=== PATIENT | male | born 1940 | race African-American/Black ===

== ENCOUNTER 2020-07-18 13:58 | Inpatient (IN) | payer OTHER ==
[~2020-07-18] VITALS: Ht 185.4 cm; Wt 89.9 kg
[2020-07-18] MEDS ORDERED: AZITHROMYCIN 500 MG TABLET PO STA (15:11)
[2020-07-18] MEDS ORDERED: IPRATROPIUM BROMIDE (0.02%) 0.5MG/2.5ML NEB HHN STA (15:11)
[2020-07-18] MEDS ORDERED: ALBUTEROL (0.083%) 2.5MG/3ML NEB HHN STA (15:11)
[2020-07-18] MEDS ORDERED: PREDNISONE 20MG TABLET PO STA (15:11)
[2020-07-18] MEDS ORDERED: SODIUM CHLORIDE 0.9% 500 ML IV ONE ×2 (15:15→18:00)
[2020-07-18] MEDS ORDERED: ALBUTEROL (0.083%) 2.5MG/3ML NEB ONE (15:19)
[2020-07-18] MEDS ORDERED: IPRATROPIUM BROMIDE (0.02%) 0.5MG/2.5ML NEB ONE (15:20)
[2020-07-18 16:15] LABS: BASOPHILS % 0.1 % (0.0-2.0); HEMOGLOBIN. 9.5 g/dL (14.0-18.0); LYMPHOCYTES % 8.4 % (20.0-50.0); MEAN CORPUSCULAR HEMOGLOBIN 30.4 pg (28.0-32.0); MEAN CORPUSCULAR VOLUME 92.8 fL (80.0-94.0); MEAN PLATELET VOLUME 9.2 fl (7.4-10.4); MONOCYTES % 6.5 % (2.0-8.0); PLATELET 218 x1000/uL (130-400); RED BLOOD CELL COUNT 3.13 mill/uL (4.7-6.1); RED CELL DISTRIBUTION WIDTH 18.7 % (11.6-14.6)
[2020-07-18 16:17] LABS: CHLORIDE 88 mEq/L (98-107)
[2020-07-18] MEDS ORDERED: ACETAMINOPHEN 325MG TABLET PO PRN ×2 (19:15)
[2020-07-18] MEDS ORDERED: MAGNESIUM/ALUMINUM HYDROXIDE/SIMETHICONE 30ML UDC PO PRN (19:15)
[2020-07-18] MEDS ORDERED: LORAZEPAM 0.5MG TABLET PO PRN (19:15)
[2020-07-18] MEDS ORDERED: IPRATROPIUM/ALBUTEROL 0.5-3(2.5)MG/3ML NEB NEB PRN (19:15)
[2020-07-18] MEDS ORDERED: CLONIDINE 0.1MG TABLET PO PRN (19:15)
[2020-07-18] MEDS ORDERED: NITROGLYCERIN 0.4MG TABLET SL SL PRN (19:15)
[2020-07-18] MEDS ORDERED: GUAIFENESIN 200MG/10ML SUGAR FREE UDC PO PRN (19:15)
[2020-07-18] MEDS ORDERED: DOCUSATE SODIUM 100MG CAPSULE PO PRN (19:15)
[2020-07-18] MEDS ORDERED: LEVOFLOXACIN 500MG PREMIX 100 ML IV SCH ×2 (19:15→21:00)
[2020-07-18] MEDS ORDERED: ONDANSETRON HCL 4MG/2ML INJ IV PRN (19:15)
[2020-07-18] MEDS ORDERED: TRAMADOL 50MG TABLET PO PRN (19:15)
[2020-07-18] MEDS ORDERED: ZOLPIDEM TARTRATE 5MG TABLET PO PRN (20:00)
[2020-07-18 20:07] LABS: FOLIC ACID (FOLATE) SERUM 4.9 ng/mL (>5.38)
[2020-07-18] MEDS: GUAIFENESIN/DM 600MG/30MG ER TAB 12HR PO SCH (21:00)
[2020-07-18] MEDS ORDERED: FAMOTIDINE 20MG TABLET PO SCH (21:00)
[2020-07-18] MEDS ORDERED: ENOXAPARIN 40MG/0.4ML SYR SUBCUT SCH (21:00)
[2020-07-18] MEDS: FAMOTIDINE 20MG TABLET PO SCH (21:22)
[2020-07-18] MEDS: LISINOPRIL 20MG TABLET PO SCH (21:22)
[2020-07-18] MEDS: ASCORBIC ACID 500 MG TABLET PO SCH (21:22)
[2020-07-18] MEDS: METHYLPREDNISOLONE SOD SUCC 125 MG/2 ML VIAL IV SCH (22:09)
[2020-07-18] MEDS: IPRATROPIUM/ALBUTEROL 0.5-3(2.5)MG/3ML NEB HHN SCH (23:30)
[2020-07-18 23:33] LABS: CREATINE KINASE MB FRACTION 3.1 ng/mL (0.5-3.6)
[2020-07-19] MEDS: DILTIAZEM HCL 60MG TABLET PO SCH ×4 (00:33→18:40)
[2020-07-19] MEDS: CYANOCOBALAMIN 1000MCG/ML VIAL IM SCH ×2 (00:33→09:04)
[2020-07-19 04:00] VITALS: BP 159/90
[2020-07-19 04:49] VITALS: BP 159/90
[2020-07-19] MEDS: IPRATROPIUM/ALBUTEROL 0.5-3(2.5)MG/3ML NEB HHN SCH ×5 (05:04→20:33)
[2020-07-19] MEDS: METHYLPREDNISOLONE SOD SUCC 125 MG/2 ML VIAL IV SCH ×2 (06:03→14:31)
[2020-07-19] MEDS: FAMOTIDINE 20MG TABLET PO SCH (08:53)
[2020-07-19] MEDS: ASCORBIC ACID 500 MG TABLET PO SCH (08:53)
[2020-07-19] MEDS: GUAIFENESIN/DM 600MG/30MG ER TAB 12HR PO SCH (08:54)
[2020-07-19] MEDS ORDERED: FOLIC ACID 1 MG in SODIUM CHLORIDE 0.9% 500 ML IV SCH (09:00)
[2020-07-19] MEDS: LISINOPRIL 20MG TABLET PO SCH (09:00)
[2020-07-19] MEDS ORDERED: ASPIRIN 325MG EC TABLET PO SCH (09:00)
[2020-07-19] MEDS ORDERED: ZINC SULFATE 220 MG ( 50 ) CAPSULE PO SCH (09:00)
[2020-07-19 09:42] LABS: HEMATOCRIT. 26.1 % (42.0-52.0); HEMOGLOBIN. 8.8 g/dL (14.0-18.0); MEAN CORPUSCULAR HEMOGLOBIN 31.8 pg (28.0-32.0); MEAN CORPUSCULAR VOLUME 94.1 fL (80.0-94.0); MEAN PLATELET VOLUME 9.9 fl (7.4-10.4); PLATELET 158 x1000/uL (130-400); RED BLOOD CELL COUNT 2.77 mill/uL (4.7-6.1); RED CELL DISTRIBUTION WIDTH 19.2 % (11.6-14.6)
[2020-07-19 09:48] LABS: CHLORIDE 93 mEq/L (98-107)
[2020-07-19 09:55] LABS: PHOSPHORUS 2.8 mg/dL (2.5-4.9)
[2020-07-19 09:57] LABS: CREATINE KINASE 178 IU/L (39-308)
[2020-07-19 10:00] LABS: CREATINE KINASE MB FRACTION 3.6 ng/mL (0.5-3.6)
[2020-07-19 16:00] VITALS: BP 139/73
[2020-07-19 20:41] VITALS: BP 152/67
[2020-07-19] MEDS ORDERED: LEVOFLOXACIN 250MG PREMIX 50 ML IV SCH (21:00)
[2020-07-19 22:48] LABS: PLATELET ESTIMATE NORMAL
[2020-07-20] MEDS ORDERED: FOLIC ACID 1MG TABLET PO SCH (09:00)
== END 2020-07-19 21:41 | disposition short-term general hospital (02) | DRG 189 ==
LOC: ER 14:38 → UNDOADMIN 19:44 → 5WST 19:44 → MICUSO 19:44
PROVIDERS: ADMIT Internal Medicine; ATTEND Internal Medicine
DX: J96.00 Acute respiratory failure, unspecified whether with hypoxia or hypercapnia (principal); N17.0 Acute kidney failure with tubular necrosis; J44.1 Chronic obstructive pulmonary disease with (acute) exacerbation; E87.1 Hypo-osmolality and hyponatremia; I16.1 Hypertensive emergency; D51.9 Vitamin B12 deficiency anemia, unspecified; E78.00 Pure hypercholesterolemia, unspecified; F12.10 Cannabis abuse, uncomplicated; I10 Essential (primary) hypertension; I48.0 Paroxysmal atrial fibrillation; R74.0 Nonspecific elevation of levels of transaminase and lactic acid dehydrogenase [LDH]; Z79.899 Other long term (current) drug therapy; Z87.891 Personal history of nicotine dependence
CPT/HCPCS: 36415; 71045; 80053; 80061; 80320; 82550; 82553; 82607; 82728; 82746; 83036; 83540; 83550; 83735; 83880; 84100; 84145; 84484; 85025; 85379; 93005; 93306; 93970; 94640; 94644; 96374; 99285; J1650; J1956; J2930; J3420; J3490; J7040; J7512; G0480

== ENCOUNTER 2020-07-31 18:30 | Emergency (ER) | payer OTHER ==
[~2020-07-31] VITALS: Ht 180.3 cm; Wt 82.0 kg
[2020-07-31 19:59] LABS: HEMATOCRIT. 24.7 % (42.0-52.0); HEMOGLOBIN. 7.6 g/dL (14.0-18.0); MEAN CORPUSCULAR VOLUME 97.2 fL (80.0-94.0); MEAN PLATELET VOLUME 9.6 fl (7.4-10.4); PLATELET 238 x1000/uL (130-400); RED BLOOD CELL COUNT 2.54 mill/uL (4.7-6.1); RED CELL DISTRIBUTION WIDTH 18.3 % (11.6-14.6)
[2020-07-31 20:05] LABS: CHLORIDE 111 mEq/L (98-107)
[2020-07-31 20:42] LABS: CLARITY URINE CLEAR (CLEAR); COLOR URINE YELLOW (YELLOW); KETONES URINE NEGATIVE (NEGATIVE); LEUKOCYTE ESTERASE URINE NEGATIVE (NEGATIVE); NITRITE URINE NEGATIVE (NEGATIVE); OCCULT BLOOD URINE 2+ (NEGATIVE); PROTEIN URINE TRACE (NEGATIVE); SPECIFIC GRAVITY URINE 1.018 (1.005-1.030)
[2020-07-31] MEDS ORDERED: FAMOTIDINE 20MG TABLET PO NR (20:45)
[2020-07-31] MEDS ORDERED: SODIUM CHLORIDE 0.9% 1,000 ML IV ONE (20:45)
[2020-07-31] MEDS ORDERED: OCTREOTIDE 1,000 MCG in SODIUM CHLORIDE 0.9% 98 ML IV ONE ×5 (21:00→21:15)
[2020-07-31] MEDS ORDERED: PANTOPRAZOLE SODIUM 40 MG/VIAL IV NR (21:00)
[2020-07-31] MEDS ORDERED: OCTREOTIDE 1,000 MCG in SODIUM CHLORIDE 0.9% 90 ML IV ONE (21:15)
[2020-07-31 22:23] LABS: PLATELET ESTIMATE NORMAL
[2020-07-31 23:36] VITALS: BP 123/42
== END 2020-08-01 00:43 | disposition short-term general hospital (02) ==
LOC: ER 18:30
DX: K92.2 Gastrointestinal hemorrhage, unspecified (principal); N28.9 Disorder of kidney and ureter, unspecified; I10 Essential (primary) hypertension; I48.91 Unspecified atrial fibrillation; J44.9 Chronic obstructive pulmonary disease, unspecified; E78.00 Pure hypercholesterolemia, unspecified; Z79.01 Long term (current) use of anticoagulants; Z79.899 Other long term (current) drug therapy
CPT/HCPCS: 36415; 51702; 80053; 81003; 83880; 84484; 85025; 93005; 96365; 96375; 99285; C9113; J2354; J7050

== ENCOUNTER 2021-07-18 06:17 | Inpatient (IN) | payer OTHER ==
[~2021-07-18] VITALS: Ht 198.1 cm; Wt 83.5 kg
[2021-07-18 08:15] LABS: HEMATOCRIT. 42.6 % (42.0-52.0); HEMOGLOBIN. 13.9 g/dL (14.0-18.0); MEAN CORPUSCULAR HEMOGLOBIN 28.8 pg (28.0-32.0); MEAN CORPUSCULAR VOLUME 88.1 fL (80.0-94.0); MEAN PLATELET VOLUME 9.1 fl (7.4-10.4); PLATELET 236 x1000/uL (130-400); RED BLOOD CELL COUNT 4.83 mill/uL (4.7-6.1); RED CELL DISTRIBUTION WIDTH 17.6 % (11.6-14.6)
[2021-07-18 09:01] LABS: CHLORIDE 98 mEq/L (98-107); INR 1.1; PROTHROMBIN TIME 11.8 sec (9.6-11.0)
[2021-07-18 09:14] LABS: CLARITY URINE CLEAR (CLEAR); COLOR URINE YELLOW (YELLOW); KETONES URINE TRACE (NEGATIVE); LEUKOCYTE ESTERASE URINE 1+ (NEGATIVE); NITRITE URINE NEGATIVE (NEGATIVE); OCCULT BLOOD URINE 2+ (NEGATIVE); PH URINE 5.5 (4.5-8.0); PROTEIN URINE 3+ (NEGATIVE); SPECIFIC GRAVITY URINE 1.014 (1.005-1.030)
[2021-07-18] MEDS ORDERED: SODIUM CHLORIDE 0.9% 1000ML BAG (SEPSIS BOLUS) IV ONE (10:00)
[2021-07-18] MEDS ORDERED: PIPERACILLIN/TAZ 3.375G PREMIX 50 ML IV ONE (10:00)
[2021-07-18] MEDS ORDERED: VANCOMYCIN 1 G PREMIX 200 ML IV ONE (10:00)
[2021-07-18] MEDS ORDERED: SODIUM CHLORIDE 0.45% 1,000 ML IV ONE (13:00)
[2021-07-18] MEDS ORDERED: CLONIDINE 0.1MG TABLET PO PRN (13:00)
[2021-07-18] MEDS ORDERED: IPRATROPIUM/ALBUTEROL 0.5-3(2.5)MG/3ML NEB HHN PRN (13:00)
[2021-07-18] MEDS ORDERED: LORAZEPAM 2MG/ML CPJ IV PRN (13:00)
[2021-07-18] MEDS ORDERED: MAGNESIUM/ALUMINUM HYDROXIDE/SIMETHICONE 30ML UDC PO PRN (13:00)
[2021-07-18] MEDS ORDERED: HYDROCODONE/ACETAMINOPHEN 5/325MG TABLET PO PRN (13:00)
[2021-07-18] MEDS ORDERED: ACETAMINOPHEN 325MG TABLET PO PRN (13:00)
[2021-07-18] MEDS ORDERED: ONDANSETRON HCL 4MG/2ML INJ IV PRN (13:00)
[2021-07-18] MEDS ORDERED: LEVOFLOXACIN 500MG PREMIX 100 ML IV SCH (13:00)
[2021-07-18] MEDS ORDERED: THROAT LOZENGES-BENZOCAINE/MENTH/CETYLPYRD CL LOZENGES MM PRN (13:15)
[2021-07-18 14:00] LABS: PLATELET ESTIMATE NORMAL
[2021-07-18] MEDS: METOPROLOL TARTRATE 25MG TABLET PO SCH (14:42)
[2021-07-18] MEDS: POTASSIUM CHLORIDE 20MEQ TABLET SR PO SCH (14:43)
[2021-07-18] MEDS: ENOXAPARIN 40MG/0.4ML SYR SUBCUT SCH (14:43)
[2021-07-18] MEDS: AMLODIPINE 10MG TABLET PO SCH (14:43)
[2021-07-18 22:20] VITALS: BP 165/90
[2021-07-18 22:30] VITALS: BP 165/90
[2021-07-19] MEDS: METOPROLOL TARTRATE 25MG TABLET PO SCH ×2 (00:22→09:15)
[2021-07-19 04:00] VITALS: BP 157/83
[2021-07-19 06:15] LABS: CHLORIDE 104 mEq/L (98-107)
[2021-07-19 06:25] LABS: LDL CHOLESTEROL 51 mg/dL (5-100)
[2021-07-19 06:26] LABS: HDL CHOLESTEROL 110 mg/dL (40-59); T4 FREE 1.16 ng/dL (0.76-1.46)
[2021-07-19 08:00] VITALS: BP 150/78
[2021-07-19] MEDS: ASPIRIN 81MG EC TABLET PO SCH (09:15)
[2021-07-19] MEDS: POTASSIUM CHLORIDE 20MEQ TABLET SR PO SCH (09:15)
[2021-07-19] MEDS: AMLODIPINE 10MG TABLET PO SCH (09:15)
[2021-07-19] MEDS ORDERED: BENZONATATE 100MG CAPSULE PO PRN (11:15)
[2021-07-19] MEDS ORDERED: NALOXONE HCL 0.4MG/ML VIAL IV PRN (11:30)
[2021-07-19] MEDS ORDERED: LEVOFLOXACIN 500MG PREMIX 100 ML IV SCH (13:00)
[2021-07-19] MEDS: ENOXAPARIN 40MG/0.4ML SYR SUBCUT SCH (13:02)
[2021-07-19] MEDS: METHYLPREDNISOLONE SOD SUCC 40 MG/ML VIAL IV SCH (13:02)
[2021-07-19 16:00] VITALS: BP 146/82
[2021-07-19] MEDS: ZINC OXIDE 20% OINT 30GM TOP SCH (18:49)
[2021-07-19 20:00] VITALS: BP 166/78
[2021-07-19] MEDS ORDERED: METOPROLOL TARTRATE 25MG TABLET PO SCH (21:00)
[2021-07-19] MEDS: IPRATROPIUM/ALBUTEROL 0.5-3(2.5)MG/3ML NEB HHN SCH (22:51)
[2021-07-20] VITALS: BP 150/79
[2021-07-20] MEDS: IPRATROPIUM/ALBUTEROL 0.5-3(2.5)MG/3ML NEB HHN SCH ×3 (01:48→13:15)
[2021-07-20 04:00] VITALS: BP 157/79
[2021-07-20 08:00] VITALS: BP 129/76
[2021-07-20] MEDS: METHYLPREDNISOLONE SOD SUCC 40 MG/ML VIAL IV SCH (09:57)
[2021-07-20] MEDS: AMLODIPINE 10MG TABLET PO SCH (10:00)
[2021-07-20] MEDS: ASPIRIN 81MG EC TABLET PO SCH (10:00)
[2021-07-20] MEDS ORDERED: METOPROLOL TARTRATE 50MG TABLET PO SCH (10:00)
[2021-07-20] MEDS: POTASSIUM CHLORIDE 20MEQ TABLET SR PO SCH (10:00)
[2021-07-20] MEDS: ZINC OXIDE 20% OINT 30GM TOP SCH (10:01)
[2021-07-20 12:01] VITALS: BP 120/69
== END 2021-07-20 14:45 | disposition home or self-care (01) | DRG 690 ==
LOC: ER 06:17 → MICUSO 11:13 → 7EST 20:51
PROVIDERS: ADMIT Hospitalist; ATTEND Hospitalist
DX: N39.0 Urinary tract infection, site not specified (principal); R78.81 Bacteremia; E87.2 Acidosis; I48.91 Unspecified atrial fibrillation; E87.6 Hypokalemia; E78.5 Hyperlipidemia, unspecified; E78.00 Pure hypercholesterolemia, unspecified; J44.9 Chronic obstructive pulmonary disease, unspecified; R74.01 Elevation of levels of liver transaminase levels; I10 Essential (primary) hypertension; Z20.822 Contact with and (suspected) exposure to COVID-19; Z82.49 Family history of ischemic heart disease and other diseases of the circulatory system; Z99.81 Dependence on supplemental oxygen; B96.89 Other specified bacterial agents as the cause of diseases classified elsewhere
CPT/HCPCS: 36415; 71045; 80053; 80061; 81003; 83605; 84145; 84439; 84443; 84484; 85025; 87077; 87426; 93005; 93970; 94640; 97161; 99291; J1650; J1956; J2543; J2920; J3370; J7030

== ENCOUNTER 2021-10-23 13:22 | Emergency (ER) | payer MEDICARE, OTHER ==
[~2021-10-23] VITALS: Ht 190.5 cm; Wt 82.0 kg
[2021-10-23 14:09] LABS: BASOPHILS % 0.7 % (0.0-2.0); EOSINOPHILS % 0.3 % (0.0-5.0); HEMATOCRIT. 37.8 % (42.0-52.0); LYMPHOCYTES % 25.4 % (20.0-50.0); MEAN CORPUSCULAR HEMOGLOBIN 28.5 pg (28.0-32.0); MEAN CORPUSCULAR VOLUME 89.5 fL (80.0-94.0); MEAN PLATELET VOLUME 8.7 fl (7.4-10.4); MONOCYTES % 7.1 % (2.0-8.0); NEUTROPHILS % 66.5 % (40.0-76.0); PLATELET 270 x1000/uL (130-400); RED BLOOD CELL COUNT 4.22 mill/uL (4.7-6.1); RED CELL DISTRIBUTION WIDTH 16.9 % (11.6-14.6)
[2021-10-23 14:16] LABS: CHLORIDE 96 mEq/L (98-107)
[2021-10-23] MEDS ORDERED: FUROSEMIDE 40MG/4ML VIAL IVP NR (16:15)
[2021-10-23] MEDS ORDERED: ASPIRIN 81MG TABLET PO NR (16:15)
[2021-10-23 19:40] VITALS: BP 184/94
== END 2021-10-23 19:59 | disposition short-term general hospital (02) ==
LOC: ER 13:36
DX: R06.02 Shortness of breath (principal); R77.8 Other specified abnormalities of plasma proteins; I10 Essential (primary) hypertension; E87.1 Hypo-osmolality and hyponatremia; R00.0 Tachycardia, unspecified; R53.1 Weakness; R53.83 Other fatigue; D64.9 Anemia, unspecified; I48.91 Unspecified atrial fibrillation; Z79.01 Long term (current) use of anticoagulants
CPT/HCPCS: 36415; 71045; 80053; 83880; 84484; 85025; 87426; 93005; 96374; 99285; J1940; J7040